=== PATIENT | female | born 1950 | race Caucasian/White ===

== ENCOUNTER 2017-02-28 20:00 | Inpatient (IN) | payer MEDICAID ==
[~2017-02-28] VITALS: Ht 152.4 cm; Wt 79.8 kg
[~2017-02-28 20:00] MED LIST: LEVO0.1331 PO
[2017-02-28 20:15] VITALS: BP 159/101
[2017-02-28] MEDS ORDERED: [UNRECOGNIZED DRUG - CODE] PO (20:20)
[2017-02-28] MEDS ORDERED: OMEP20TC10 PO (20:20)
--- NOTE | 2017-02-28 20:32 | NUR ---
Patient ambulated to bed 12.
--- NOTE | 2017-02-28 20:38 | NUR ---
PATIENT PRESENTS TO ED WITH FEELS LIKE SOMETHING IS STUCK IN HER THROAT AND HAVING TROUBLE SWALLOWING SINCE 1400. NO DROOLING NOTED, NO SOB. PT DENIES N/V/D; SKIN IS PINK/WARM/DRY; AAOX4 WITH EVEN AND STEADY GAIT; LUNGS CLEAR BL; HR EVEN AND REGULAR; PT DENIES ANY FEVER, CP, SOB, OR COUGH AT THIS TIME; PATIENT STATES PAIN OF 7/10 AT THIS TIME; VSS; PATIENT POSITIONED FOR COMFORT; HOB ELEVATED; BEDRAILS UP X2; BED DOWN. ER MD MADE AWARE OF PT STATUS.
--- NOTE | 2017-02-28 21:12 | NUR ---
PO CHALLENGE FAILED, EMESIS NOTED. NOTIFIED.
[2017-02-28] MEDS ORDERED: NACL 0.9% 1,000 ML IV ONE (22:30)
[2017-02-28 22:56] LABS: HEMATOCRIT 41.7 % (36-48); HEMOGLOBIN 13.7 g/dL (12.0-16.0); MEAN CORPUSCULAR HEMOGLOBIN 30 pg (27-31); MEAN CORPUSCULAR HGB CONC 33 g/dL (33-37); MEAN CORPUSCULAR VOLUME 92 fL (80-94); PLATELET COUNT (AUTO) 164 K/uL (140-450); RED BLOOD CELL COUNT(AUTO) 4.53 MIL/uL (4.20-5.40); RED CELL DISTRIBUTION WIDTH 14.9 % (11.6-13.7); WHITE BLOOD COUNT (AUTO) 7.6 K/uL (4.8-10.8)
[2017-02-28 23:02] LABS: LYMPHOCYTES % (MANUAL) 24 % (20-46); MONOCYTES % (MANUAL) 4 % (5-12)
[2017-02-28 23:03] LABS: PROTHROMBIN TIME 10.6 secs (10.8-13.4)
[2017-02-28 23:05] LABS: ALBUMIN 3.9 g/dL (3.4-5.0); ANION GAP 12.8 (8-16); CARBON DIOXIDE 29.6 mmol/L (21-32); CREATININE 0.7 mg/dL (0.6-1.3); POTASSIUM 3.4 mmol/L (3.5-5.1); TOTAL BILIRUBIN 0.8 mg/dL (0.0-1.0)
[2017-02-28] MEDS ORDERED: NACL 0.9% 500 ML IV ONE (23:15)
[2017-02-28] MEDS ORDERED: NACL 0.9% 1,000 ML IV SCH (23:44)
[2017-02-28] MEDS ORDERED: MORPHINE SULFATE 2 MG/ML SYR IVP PRN (23:45)
[2017-02-28] MEDS ORDERED: ONDANSETRON 4 MG/2 ML VIAL IM/IVP PRN (23:45)
[2017-02-28] MEDS ORDERED: ACETAMINOPHEN 325 MG TAB PO PRN (23:45)
[2017-02-28] MEDS ORDERED: HYDROcodone/APAP 7.5/325 MG 1 TAB PO PRN (23:45)
[2017-02-28] MEDS ORDERED: DOCUSATE SODIUM 100 MG GELCAP PO PRN (23:45)
[2017-03-01] MEDS ORDERED: KETOROLAC 30 MG/ML VIAL IVP ONE (00:10)
[2017-03-01 00:22] LABS: CHOL/HDL RATIO 3.4 (1-4.5); FREE T4 (FREE THYROXINE) 0.99 ng/dL (0.76-1.46); MAGNESIUM 2.1 mg/dL (1.8-2.4); PHOSPHORUS 3.9 mg/dL (2.5-4.9); THYROID STIMULATING HORMONE 1.52 uIU/mL (0.34-3.74)
--- NOTE | 2017-03-01 00:35 | NUR ---
RECEIVED REPORT FROM ENRIQUETA WHITE FROM ER. WILL WAIT FOR PATIENT'S ARRIVAL IN THE UNIT.
--- NOTE | 2017-03-01 00:35 | NUR ---
Patient will be admitted to care of DR SIDDIQI. Admited to TELE. Will go to room 121A. Belongings list completed. Report to CHRISTOPHER CANELA.
--- NOTE | 2017-03-01 00:44 | NUR ---
RECEIVED PATIENT FROM ER VIA GURNEY ACCOMPANIED BY RN AND EMT. INITIAL ASSESSMENT COMPLETED. PT IS AWAKE ALERT ORIENTED X4. GEORGIAN SPEAKING. SON AT BEDSIDE TO TRANSLATE AT THIS TIME. ON TELE MONITORING. IV ACCESS AT LEFT HAND 20G, IVF INFUSING WELL, PATENT, INTACT AT THIS TIME. CALL LIGHT WITHIN REACH, BED IN LOW POSITION. SAFETY MEASURE ENSURE. WILL CONTINUE TO MONITOR.
[2017-03-01 00:45] VITALS: BP 139/74
[2017-03-01] MEDS ORDERED: DEXT 5% /NACL 0.9% 1,000 ML IV SCH (01:05)
[2017-03-01] MEDS ORDERED: KCL 20 MEQ/WATER INJ PREMIX 100 ML IV SCH (01:15)
--- NOTE | 2017-03-01 01:35 | NUR ---
DR. CASTRO AT BEDSIDE EVALUATING PT.
--- NOTE | 2017-03-01 02:08 | NUR ---
NOTED TO HAVE BLACK SPOT ON THE TONGUE. DR. CASTRO AWARE AND SAW THE PATIENT. Addendum: 03/01/17 at 0210 by Tangela Hess RN NO SIGNS OF BLEEDING, NO DIFFICULTY OF BREATHING. WILL CONTINUE TO MONITOR.
[2017-03-01 04:00] VITALS: BP 147/70
--- NOTE | 2017-03-01 04:51 | NUR ---
PT ASLEEP AT THIS TIME. NO SIGNS OF DISTRESS NOTED. WILL CONTINUE TO MONITOR.
--- NOTE | 2017-03-01 07:15 | NUR ---
REPORT GIVEN TO CHRISTOPHER HERNANDEZ FOR CONTINUITY OF CARE, STABLE CONDITION AT THIS TIME.
--- NOTE | 2017-03-01 07:20 | NUR ---
RECEIVED REPORT FROM PEDODONTIST NURSE, PT IS RESTING IN BED TALKING ON HER CELL PHONE, PT IS A/OX4, AMBULATES WITH ASSIST, IV IS ON THE LT HAND, PATENT, INTACT, FLUSHING WELL, NO S/S OF RESPIRATORY DISTRESS OR DISCOMFORT NOTED, DISCUSSED PLAN OF CARE WITH PT, PT VERBALIZED UNDERSTANDING, SAFETY/FALL/ASPIRATION PRECAUTIONS ARE IN PLACE, CALL LIGHT IS WITHIN REACH, WILL CONTINUE TO MONITOR.
[2017-03-01 07:30] LABS: BASOPHILS # (AUTO) 0.1 K/uL (0.00-0.22); BASOPHILS % (AUTO) 2.1 % (0.0-2.0); EOSINOPHILS # (AUTO) 0.1 K/uL (0-0.4); EOSINOPHILS % (AUTO) 1.5 % (0.0-4.0); HEMATOCRIT 37.9 % (36-48); HEMOGLOBIN 12.9 g/dL (12.0-16.0); LYMPHOCYTES # (AUTO) 1.4 K/uL (2.5-16.5); LYMPHOCYTES % (AUTO) 24.4 % (20.5-51.1); MEAN CORPUSCULAR HEMOGLOBIN 31 pg (27-31); MEAN CORPUSCULAR HGB CONC 34 g/dL (33-37); MEAN CORPUSCULAR VOLUME 91 fL (80-94); MONOCYTES # (AUTO) 0.5 K/uL (0.8-1.0); MONOCYTES % (AUTO) 9.5 % (1.7-9.3); NEUTROPHILS # (AUTO) 3.5 K/uL (1.8-7.7); NEUTROPHILS % (AUTO) 62.5 % (42.2-75.2); PLATELET COUNT (AUTO) 166 K/uL (140-450); RED BLOOD CELL COUNT(AUTO) 4.17 MIL/uL (4.20-5.40); RED CELL DISTRIBUTION WIDTH 14.5 % (11.6-13.7); WHITE BLOOD COUNT (AUTO) 5.6 K/uL (4.8-10.8)
[2017-03-01] MEDS ORDERED: INFLUENZA VIRUS VACCINE QUAD 0.5 ML SYR IMVAC PRN (07:35)
[2017-03-01] MEDS ORDERED: PNEUMOCOCCAL VACCINE 23 MCG/0.5 ML VIAL IMVAC PRN (07:35)
[2017-03-01 07:46] LABS: ANION GAP 10.9 (8-16); CREATININE 0.6 mg/dL (0.6-1.3); POTASSIUM 3.9 mmol/L (3.5-5.1)
[2017-03-01 08:00] VITALS: BP 127/77
[2017-03-01] MEDS: NACL 0.9% 1,000 ML IV SCH ×2 (08:45→20:13)
[2017-03-01] MEDS ORDERED: GLUCOSAMINE SULFATE DIPOT CHLR 500 MG PO SCH (09:00)
[2017-03-01] MEDS ORDERED: PNEUMOCOCCAL VACCINE 23 MCG/0.5 ML VIAL IMVAC SCH (09:00)
[2017-03-01] MEDS ORDERED: INFLUENZA VIRUS VACCINE QUAD 0.5 ML SYR IMVAC SCH (09:00)
[2017-03-01] MEDS ORDERED: PANTOPRAZOLE 40 MG INJ VIAL IVP SCH (09:00)
--- NOTE | 2017-03-01 10:00 | NUR ---
DUE MEDICATIONS GIVEN. PT TOLERATED, CALL LIGHT WITHIN REACH.
[2017-03-01] MEDS: LEVOTHYROXINE 200 MCG VIAL IV SCH (10:02)
[2017-03-01] MEDS: PANTOPRAZOLE 40 MG INJ VIAL IVP SCH (10:02)
--- NOTE | 2017-03-01 10:31 | NUR ---
MATERIALS COORDINATOR note MATERIALS COORDINATOR received order for bedside swallow evaluation; however, per review of chart and d/w RN (Magi) and medical safety director (Rosmery Marti), hold bedside swallow evaluation until after GI physician has assessed pt. MATERIALS COORDINATOR will reattempt tomorrow (03/02/2017) as pt available/able to participate safely, as appropriate. Addendum: 03/01/17 at [address] for bedside swallow evaluation attempt and d/w RN and medical safety director.
--- NOTE | 2017-03-01 10:32 | NUR ---
PATIENT HAS BEEN SCREENED AND CATEGORIZED HIGH NUTRITION RISK. PATIENT WILL BE SEEN WITHIN 1-2 DAYS OF ADMISSION. 03/01/17-03/02/[address]
[2017-03-01 12:00] VITALS: BP 133/71
--- NOTE | 2017-03-01 13:15 | NUR ---
PT OFF UNIT AND TAKEN TO RADIOLOGY TO HAVE STUDY DONE.
--- NOTE | 2017-03-01 13:25 | NUR ---
PT RETURNED FROM RADIOLOGY, PT STABLE, RESTING IN BED.
--- NOTE | 2017-03-01 15:03 | NUR ---
03/01/17 RD INITIAL ASSESSMENT COMPLETED PLEASE REFER TO NUTRITION ASSESSMENT UNDER CARE ACTIVITY FOR ESTIMATED NUTRITIONAL NEEDS. 1. CONTINUE NPO DIET 2. WHEN MEDICALLY FEASIBLE, INITIATE CLEAR LIQUID DIET AND ADVANCE TO REGULAR DIET WITH TEXTURE PER WOOL SORTER RECOMMENDATIONS 3. RD TO FOLLOW UP WITHIN 2-3 DAYS; HIGH RISK JAQUI VALENCIA, DOMITILA
--- NOTE | 2017-03-01 15:30 | NUR ---
PT RESTING IN BED, NO S/S OF RESPIRATORY DISTRESS OR DISCOMFORT NOTED, CALL LIGHT WITHIN REACH.
[2017-03-01 16:00] VITALS: BP 129/70
--- NOTE | 2017-03-01 17:40 | NUR ---
ASSISTED PT TO THE BATHROOM AND BACK INTO BED, PATIENT'S FAMILY MEMBERS ARE AT BEDSIDE.
--- NOTE | 2017-03-01 19:20 | NUR ---
ENDORSED PT TO REFERENCE INVESTIGATOR NURSE FOR CONTINUITY OF CARE, PT STABLE AT THIS TIME.
--- NOTE | 2017-03-01 19:20 | NUR ---
RECEIVED FROM AM RN IN BED AWAKE AND ALERT. SERBIAN SPEAKING. SPOUSE AT BEDSIDE AND ABLE TO VERBALIZE NEEDS WELL. NO SOB. DENIES ANY DOLOR AT THIS TIME. TELEMETRY MONITORING. NPO AT THIS TIME ORDERED. ENCOURAGED TO USE CALL LIGHT FOR ANY HELP SHE MAY NEED. AFEBRILE.
[2017-03-01 20:36] VITALS: BP 126/73
--- NOTE | 2017-03-01 22:30 | NUR ---
PT. WENT TO SLEEP AT THIS TIME. CALL LIGHT WITH IN REACH. TELEMETRY MONITORING.
--- NOTE | 2017-03-01 23:48 | NUR ---
SLEEPING WELL. CALL LIGHT WITH IN REACH . TELEMETRY MONITORING. IVF SITE INTACT AND NO INFILTRATION NOTED.
[2017-03-02] VITALS: BP 116/69
--- NOTE | 2017-03-02 02:42 | NUR ---
PT. PULLED UP AND PROPPED HEAD WITH TWO PILLOWS RT SNORING VERY LOUDLY. PT STATED " I REALLY SLEEP THIS WAY" STATED SHE REALLY SNORES SO BAD. TELEMETRY MONITORING.
[2017-03-02 04:19] VITALS: BP 126/75
--- NOTE | 2017-03-02 06:44 | NUR ---
AWAKE AT THIS TIME AND WENT RESTROOM INSIDE ROOM. CAME BACK WITH IFV OUT /ACCIDENTALLY DISCONTINUED BY PT. TIP INTACT. NEW IVF LINE INSERTED BY NURSE NAVID X 1 TO RIGHT HAND#22. TOLERATED WELL. COVERED WITH TRANSPARENT DRESSING.
--- NOTE | 2017-03-02 07:10 | NUR ---
RECEIVED REPORT FROM MANAGER COMMISSION NURSE, PT IS RESTING IN BED, PT IS A/OX4, AMBULATORY, IV IS ON THE RIGHT HAND, PATENT, INTACT, FLUSHING WELL, SKIN IS INTACT, NO S/S OF RESPIRATORY DISTRESS OR DISCOMFORT NOTED, DISCUSSED PLAN OF CARE WITH PT, PT VERBALIZED UNDERSTANDING, SAFETY/FALL/ASPIRATION PRECAUTIONS ARE IN PLACE, CALL LIGHT IS WITHIN REACH, WILL CONTINUE TO MONITOR.
[2017-03-02 07:23] LABS: BASOPHILS # (AUTO) 0.2 K/uL (0.00-0.22); BASOPHILS % (AUTO) 3.6 % (0.0-2.0); EOSINOPHILS # (AUTO) 0.1 K/uL (0-0.4); EOSINOPHILS % (AUTO) 1.5 % (0.0-4.0); HEMOGLOBIN 13.1 g/dL (12.0-16.0); LYMPHOCYTES # (AUTO) 1.1 K/uL (2.5-16.5); LYMPHOCYTES % (AUTO) 24.8 % (20.5-51.1); MEAN CORPUSCULAR HEMOGLOBIN 31 pg (27-31); MEAN CORPUSCULAR HGB CONC 34 g/dL (33-37); MEAN CORPUSCULAR VOLUME 92 fL (80-94); MONOCYTES # (AUTO) 0.4 K/uL (0.8-1.0); MONOCYTES % (AUTO) 9.7 % (1.7-9.3); NEUTROPHILS # (AUTO) 2.8 K/uL (1.8-7.7); NEUTROPHILS % (AUTO) 60.4 % (42.2-75.2); PLATELET COUNT (AUTO) 160 K/uL (140-450); RED BLOOD CELL COUNT(AUTO) 4.24 MIL/uL (4.20-5.40); RED CELL DISTRIBUTION WIDTH 14.7 % (11.6-13.7); WHITE BLOOD COUNT (AUTO) 4.6 K/uL (4.8-10.8)
[2017-03-02 07:38] LABS: ANION GAP 11.1 (8-16); CARBON DIOXIDE 28.5 mmol/L (21-32); CREATININE 0.6 mg/dL (0.6-1.3); POTASSIUM 3.6 mmol/L (3.5-5.1)
[2017-03-02 08:00] VITALS: BP 137/84
[2017-03-02] MEDS: PANTOPRAZOLE 40 MG INJ VIAL IVP SCH (08:47)
[2017-03-02] MEDS: LEVOTHYROXINE 200 MCG VIAL IV SCH (08:48)
[2017-03-02 08:54] LABS: T4 (THYROXINE) 7.5 ug/dL (4.5-12.0)
[2017-03-02] MEDS: NACL 0.9% 1,000 ML IV SCH (11:25)
--- NOTE | 2017-03-02 13:17 | NUR ---
PATIENT OFF UNIT TO HAVE EGD DONE AT THIS TIME. PT STABLE UPON LEAVING UNIT
[2017-03-02] MEDS ORDERED: MIDAZOLAM 2 MG/2 ML VIAL ONE (13:32)
[2017-03-02] MEDS ORDERED: fentaNYL 0.05 MG/ML VIAL ONE (13:32)
[2017-03-02] MEDS ORDERED: diphenhydrAMINE 50 MG/ML VIAL ONE (13:33)
--- NOTE | 2017-03-02 14:27 | NUR ---
PT RETURNED TO UNIT FROM EGD PROCEDURE, PT AWAKE AND STABLE AT THIS TIME. PT VITALS BP 130/76, HR:75, O2:95%, TEMP: 97.5.
[2017-03-02] MEDS ORDERED: fentaNYL 0.05 MG/ML VIAL IVP ONE (14:30)
[2017-03-02] MEDS ORDERED: MIDAZOLAM 2 MG/2 ML VIAL IVP ONE (14:30)
[2017-03-02 16:00] VITALS: BP 122/75
--- NOTE | 2017-03-02 17:12 | NUR ---
* ST NOTE * Pt seen at bedside w/nsg present. Bedside dysphagia and oral mechanism exams completed. See evaluation report for further details. Pt tolerating 2/2 alternating PO trials of puree apple sauce 3-5 CCs at a time via a spoon w/o s/s of aspiration. Pt also tolerating 6/6 alternating PO trials of thin liquid apple juice via a straw w/out s/s of aspiration exhibiting clear voicing WFL w/out wet or gargly vocal quality after PO intake of liquids. Pt then tolerating 4/4 alternating PO trials of regular solid crackers w/o s/s of aspiration. Pt and caregiver/nsg education completed regarding safe swallow compensatory strategies pt and caregivers/nsg could utilize to aid pt w/swallow function 2/2 to esophageal stricture and hx of dysphagia, w/pt and caregivers/nsg verbalizing understanding and agreement w/clinician's recommendations. It is thus recommended pt's PO diet consistency be modified to mechanical soft textures w/thin liquids for all meals, with pt and caregivers/nsg verbalizing understanding and agreement. No further ST follow up recommended at this time. Pt and caregiver/nsg education completed regarding results of evaluation, benefits of abiding by aspiration precautions and recommended PO diet consistency, and prognosis for improvement, with pt and caregivers/nsg verbalizing understanding and agreement w/clinician's recommendations. Recommend: - PO diet consistency of Mechanical soft-Chopped w/Thin Liquids for all meals - Sit pt up at 90 degree angle during PO intake 2/2 to pt's hx of dysphagia and esophageal stricture - Cueing/Reminders during setup of food tray of aspiration precautions prior to PO intake - Distal supervision during PO intake by caregivers/staff to assure aspiration precautions are in place No further ST follow up recommended at this time. G8996 CJ G8997 CI G8998 CI NOMS Level 2 Time In/Out 16:00 - 16:30
--- NOTE | 2017-03-02 19:15 | NUR ---
ENDORSED PT TO ECOMMERCE MERCHANDISING MANAGER NURSE FOR CONTINUITY OF CARE, PT STABLE AT THIS TIME.
--- NOTE | 2017-03-02 19:30 | NUR ---
RECEIVED PT IN STABLE CONDITION FROM AM NURSE. AWAKE,ALERT AND ORIENTED X4. HUNGARIAN SPEAKING. MED SURG PT. WITH NO C/O OF ANY DISCOMFORT NOR PAIN NOTED. HAS IVF INFUSING WELL ON THE RT HAND G#22. AMBULATORY TO BATHROOM WITH ASSISTANCE. PLAN OF CARE DISCUSSED AND VERBALIZED UNDERSTANDING. CALL LIGHT PLACED WITHIN EASY REACH. WILL CONTINUE TO MONITOR.
--- NOTE | 2017-03-02 22:00 | NUR ---
ASSISTED UP TO BATHROOM. VOIDED. BACK TO BED WITH NO PROBLEM NOTED. NO C/O ANY PAIN.
[2017-03-02 23:46] VITALS: BP 116/66
--- NOTE | 2017-03-03 00:10 | NUR ---
SLEEPING WELL AT THIS TIME. NO S/S OF ANY DISCOMFORT/PAIN NOTED. WILL CONTINUE TO MONITOR.
[2017-03-03] MEDS: NACL 0.9% 1,000 ML IV SCH ×2 (00:12→11:57)
--- NOTE | 2017-03-03 03:50 | NUR ---
PT AWAKE, ASSISTED TO BATHROOM. URINE SPECIMEN COLLECTED AND SEND TO LAB.
[2017-03-03 04:15] LABS: APPEARANCE,URINE CLEAR (CLEAR); BILIRUBIN,URINE NEGATIVE (NEGATIVE); BLOOD, URINE NEGATIVE (NEGATIVE); COLOR,URINE YELLOW (YELLOW); LEUKOCYTE ESTERASE ,URINE NEGATIVE (NEGATIVE); NITRITE, URINE NEGATIVE (NEGATIVE); UGLUCOSE NEGATIVE (NEGATIVE)
[2017-03-03 04:24] LABS: RBC,URINE 0-5 (RARE) /HPF (0-5); WBC,URINE 0-5 (RARE) /HPF (0-5)
--- NOTE | 2017-03-03 05:30 | NUR ---
SLEEPING AT THIS TIME. NO S/S OF ANY DISTRESS NOR DISCOMFORT NOTED.
[2017-03-03 06:26] LABS: BASOPHILS # (AUTO) 0.2 K/uL (0.00-0.22); BASOPHILS % (AUTO) 3.4 % (0.0-2.0); EOSINOPHILS # (AUTO) 0.1 K/uL (0-0.4); EOSINOPHILS % (AUTO) 2.3 % (0.0-4.0); HEMOGLOBIN 12.7 g/dL (12.0-16.0); LYMPHOCYTES # (AUTO) 1.3 K/uL (2.5-16.5); LYMPHOCYTES % (AUTO) 26.7 % (20.5-51.1); MEAN CORPUSCULAR HEMOGLOBIN 31 pg (27-31); MEAN CORPUSCULAR HGB CONC 33 g/dL (33-37); MEAN CORPUSCULAR VOLUME 92 fL (80-94); MONOCYTES # (AUTO) 0.5 K/uL (0.8-1.0); MONOCYTES % (AUTO) 10.3 % (1.7-9.3); NEUTROPHILS # (AUTO) 2.9 K/uL (1.8-7.7); NEUTROPHILS % (AUTO) 57.3 % (42.2-75.2); PLATELET COUNT (AUTO) 149 K/uL (140-450); RED BLOOD CELL COUNT(AUTO) 4.11 MIL/uL (4.20-5.40); RED CELL DISTRIBUTION WIDTH 14.8 % (11.6-13.7)
[2017-03-03 06:41] LABS: ANION GAP 11.5 (8-16); CARBON DIOXIDE 26.9 mmol/L (21-32); CREATININE 0.6 mg/dL (0.6-1.3); POTASSIUM 3.4 mmol/L (3.5-5.1)
[2017-03-03 06:49] LABS: MAGNESIUM 1.9 mg/dL (1.8-2.4); PHOSPHORUS 3.5 mg/dL (2.5-4.9)
--- NOTE | 2017-03-03 07:24 | NUR ---
ENDORSED PT IN STABLE CONDITION TO AM NURSE.
--- NOTE | 2017-03-03 07:25 | NUR ---
RECEIVED REPORT FROM THE WILDLAND FIREFIGHTER NURSE AT BEDSIDE FOR CONTINUITY OF CARE. PT IS AWAKE AND ORIENTED, UKRAINIAN SPEAKING. INTRODUCED MYSELF AND UPDATED THE BOARD. PT'S V/S WITHIN NORMAL LIMITS. IV ON R HAND 22G NS AT 75ML. PT DENIES PAIN. PT IS EATING BREAKFAST. NO SIGNS OF DISTRESS OR DYSPHAGIA. PER DR RENNER, PT WILL BE D/C TODAY. WILL AWAIT DISCHARGE ORDERS. WILL CONTINUE TO MONITOR PT.
[2017-03-03 08:00] VITALS: BP 140/76
[2017-03-03] MEDS: PANTOPRAZOLE 40 MG INJ VIAL IVP SCH (08:44)
--- NOTE | 2017-03-03 08:53 | NUR ---
ADMINISTERED MORNING MED ALONG WITH HER FLU AND PNA VACCINATIONS. PT TOLERATED WELL. WILL CONTINUE TO MONITOR PT.
--- NOTE | 2017-03-03 10:57 | NUR ---
PT AWAKE AND VISITING WITH FRIENDS. NO SIGNS OF DISTRESS. WILL CONTINUE TO MONITOR PT.
[2017-03-03] MEDS ORDERED: POTASSIUM CHLORIDE 10 MEQ TABER PO SCH (12:00)
--- NOTE | 2017-03-03 13:50 | NUR ---
WENT OVER D/C INSTRUCTIONS WITH THE USE OF A INSIDE SALES SPECIALIST PHONE. ANSWERED ALL QUESTIONS. PT VERBALIZED UNDERSTANDING. SIGNED ALL APPROPRIATE PAPER WORK. REMOVED IV,CANNULA INTACT. NO BLEEDING NOTED. REMOVED ALL ID BANDS. PT WILL GET CHANGED INTO PERSONAL CLOTHES AND GATHER HER PERSONAL BELONGINGS. WILL CALL US WHEN SHE IS READY TO LEAVE.
--- NOTE | 2017-03-03 14:05 | NUR ---
PT WHEELED OUT IN A WHEELCHAIR BY MATHEMATICS FACULTY MEMBER AND DAUGHTER AT HER SIDE. PT HAS ALL HER PERSONAL BELONGINGS WITH HER. PT IS IN STABLE CONDITION.
[2017-03-04] MEDS ORDERED: LEVOTHYROXINE 0.112 MG, LEVOTHYROXINE 0.025 MG PO SCH ×2 (06:30)
[2017-03-04] MEDS ORDERED: LEVOTHYROXINE 0.112 MG TAB PO SCH (06:30)
== END 2017-03-03 14:05 | disposition home or self-care (01) | DRG 243 ==
LOC: MED 20:00 → MTU 23:50
PROVIDERS: ADMIT Family Medicine; ATTEND Family Medicine
PROC: 0DB68ZX Excision of Stomach, Via Natural or Artificial Opening Endoscopic, Diagnostic (ICD-10-PCS; principal; 2017-03-02 13:30)
PROC: 0D738ZZ Dilation of Lower Esophagus, Via Natural or Artificial Opening Endoscopic (ICD-10-PCS; 2017-03-02 13:30)
DX: K22.2 Esophageal obstruction (principal); N17.0 Acute kidney failure with tubular necrosis; E87.0 Hyperosmolality and hypernatremia; K44.9 Diaphragmatic hernia without obstruction or gangrene; E83.51 Hypocalcemia; E78.5 Hyperlipidemia, unspecified; I10 Essential (primary) hypertension; E11.9 Type 2 diabetes mellitus without complications; K21.9 Gastro-esophageal reflux disease without esophagitis; E89.0 Postprocedural hypothyroidism; M19.90 Unspecified osteoarthritis, unspecified site; E87.6 Hypokalemia; E66.9 Obesity, unspecified; E87.8 Other disorders of electrolyte and fluid balance, not elsewhere classified; K29.70 Gastritis, unspecified, without bleeding; J35.8 Other chronic diseases of tonsils and adenoids; Z68.34 Body mass index [BMI] 34.0-34.9, adult; Z86.73 Personal history of transient ischemic attack (TIA), and cerebral infarction without residual deficits; Z85.850 Personal history of malignant neoplasm of thyroid
CPT/HCPCS: 36415; 70490; 74220; 80048; 80053; 81001; 82140; 82150; 83036; 83690; 83735; 83880; 84100; 84436; 84439; 84443; 84479; 85025; 85610; 85730; 86677; 87081; 90658; 90732; 92610; 96361; 96374; 99285; C1727; C9113; J1200; J1885; J2250; J3010; J3480; J3490; J7030; J7042

== ENCOUNTER 2019-03-22 09:49 | Emergency (ER) | payer MEDICAID ==
[~2019-03-22] VITALS: Ht 154.9 cm; Wt 73.5 kg
[~2019-03-22 09:49] MED LIST changes: +OMEP20TC10 PO; +[UNRECOGNIZED DRUG - CODE] PO
[2019-03-22 10:13] VITALS: BP 149/80
--- NOTE | 2019-03-22 10:58 | NUR ---
Patient transferred to bed 2 via wheelchair. RN evaluating patient at bedside.
--- NOTE | 2019-03-22 11:53 | NUR ---
C/O DYSPHAGIA X2 DAYS. PER PT DAUGHTER, PT HAS BEEN UNABLE TO SWALLOW FOOD/WATER FOR 2 DAYS. PT HAX HX OF presbyesophagus. NO LABORED BREATHING, DROOLING, SOB NOTED. PT DENIES PAIN. BED IN LOW POSITION, SIDE RAIL UP X1
--- NOTE | 2019-03-22 12:00 | NUR ---
ERMD AT BEDSIDE EVALUATING PT
[2019-03-22] MEDS ORDERED: NACL 0.9% 1,000 ML IV SCH (12:10)
[2019-03-22] MEDS ORDERED: ONDANSETRON 4 MG/2 ML VIAL IVP ONE (12:10)
[2019-03-22 12:44] LABS: BASOPHILS % (AUTO) 0.4 % (0.0-2.0); EOSINOPHILS # (AUTO) 0.1 K/uL (0-0.4); EOSINOPHILS % (AUTO) 0.8 % (0.0-4.0); HEMATOCRIT 43.6 % (36-48); HEMOGLOBIN 14.8 g/dL (12.0-16.0); LYMPHOCYTES # (AUTO) 1.5 K/uL (2.5-16.5); LYMPHOCYTES % (AUTO) 18.9 % (20.5-51.1); MEAN CORPUSCULAR HEMOGLOBIN 33 pg (27-31); MEAN CORPUSCULAR HGB CONC 34 g/dL (33-37); MEAN CORPUSCULAR VOLUME 96.7 fL (80-94); MONOCYTES # (AUTO) 0.5 K/uL (0.8-1.0); MONOCYTES % (AUTO) 6.9 % (1.7-9.3); NEUTROPHILS # (AUTO) 5.7 K/uL (1.8-7.7); PLATELET COUNT (AUTO) 177 K/uL (140-450); RED BLOOD CELL COUNT(AUTO) 4.51 MIL/uL (4.20-5.40); RED CELL DISTRIBUTION WIDTH 14.3 % (11.6-13.7); WHITE BLOOD COUNT (AUTO) 7.8 K/uL (4.8-10.8)
[2019-03-22 12:58] LABS: APPEARANCE,URINE CLEAR (CLEAR); COLOR,URINE YELLOW (YELLOW)
[2019-03-22 12:59] LABS: BILIRUBIN,URINE NEGATIVE (NEGATIVE); BLOOD, URINE NEGATIVE (NEGATIVE); LEUKOCYTE ESTERASE ,URINE 1+ (NEGATIVE); NITRITE, URINE NEGATIVE (NEGATIVE); UGLUCOSE NEGATIVE (NEGATIVE)
[2019-03-22 13:36] LABS: RBC,URINE 0-5 /HPF (0-5)
[2019-03-22 13:37] LABS: WBC,URINE 0-5 /HPF (0-5)
[2019-03-22 13:47] LABS: POTASSIUM 4.3 mmol/L (3.5-5.1)
[2019-03-22 13:48] LABS: CREATININE 0.6 mg/dL (0.6-1.3)
[2019-03-22 13:49] LABS: ALBUMIN 3.8 g/dL (3.4-5.0)
--- NOTE | 2019-03-22 14:00 | NUR ---
PT RESTING IN BED, NO NEW NEEDS AT THIS TIME.
[2019-03-22] MEDS ORDERED: ALUMINUM HYD/MAG/SIMETHICONE 30 ML, DICYCLOMINE HCL LIQUID 20 MG, LIDOCAINE VISCOUS 2% ... PO ONE ×3 (15:05)
[2019-03-22 16:02] VITALS: BP 145/67
--- NOTE | 2019-03-22 16:02 | NUR ---
Patient discharged with v/s stable. Written and verbal after care instructions given and explained. Patient verbalized understanding. Ambulatory with steady gait. All questions addressed prior to discharge. Advised to follow up with PMD.
== END 2019-03-22 16:02 | disposition home or self-care (01) ==
LOC: MED 09:49
DX: J02.9 Acute pharyngitis, unspecified (principal); R13.10 Dysphagia, unspecified; K21.9 Gastro-esophageal reflux disease without esophagitis; I10 Essential (primary) hypertension; Z79.899 Other long term (current) drug therapy
CPT/HCPCS: 36415; 70490; 74176; 80053; 81001; 82150; 83690; 85025; 87086; 99284; J7030; J2405

== ENCOUNTER 2020-11-08 14:07 | Emergency (ER) | payer MEDICAID ==
[~2020-11-08] VITALS: Ht 157.5 cm; Wt 84.4 kg
[2020-11-08 14:29] VITALS: BP 147/119
--- NOTE | 2020-11-08 14:36 | NUR ---
Patient ambulated to bed 01 with cane.
--- NOTE | 2020-11-08 14:44 | NUR ---
70 Y/O F BIB SELF FROM HOME, C/O R LEG PAIN FOR 1 WEEK. PT STATES SHE TOOK IBUPROFEN WITH NO RELIEF. DENIES N/V/D; SKIN IS PINK/WARM/DRY; AAOX4 AMBULTES WITH ASSISTIVE DEVICE (CANE); LUNGS CLEAR BL; HR EVEN AND REGULAR; PT DENIES ANY FEVER, CP, SOB, OR COUGH AT THIS TIME; PATIENT STATES PAIN OF 6/10 AT THIS TIME; VSS; PATIENT POSITIONED FOR COMFORT; HOB ELEVATED; BEDRAILS UP X2; BED DOWN. ER MD MADE AWARE OF PT STATUS. PT IS ABLE TO FLEX AND EXTEND R LOWER EXTREMITY, CAP REFILL <3. PMH: GERD, HYPOTHYROIDISM, HLD MED: Naproxen, Prilosec, levothyroxine, atorvastatin, Zofran NKA
[2020-11-08] MEDS ORDERED: KETOROLAC 30 MG/ML VIAL IM ONE (15:25)
--- NOTE | 2020-11-08 15:35 | NUR ---
US at bedside.
--- NOTE | 2020-11-08 15:57 | NUR ---
Patient resting comfortably with both eyes open in semi-fowlers position. Reports positive relief after Toradol IM; rates pain 1/10 at this time. All pt needs met.
[2020-11-08] MEDS ORDERED: ACET-8386 PO (16:27)
[2020-11-08 16:42] VITALS: BP 147/105
--- NOTE | 2020-11-08 16:42 | NUR ---
Patient discharged with v/s stable. Written and verbal after care instructions given and explained. Patient alert, oriented and verbalized understanding of instructions. Ambulatory with steady gait via cane. All questions addressed prior to discharge. ID band removed. Patient advised to follow up with PMD. Rx of Hydrocodone/Acetaminophen given. Patient educated on indication of medication including possible reaction and side effects. Opportunity to ask questions provided and answered.
== END 2020-11-08 16:42 | disposition home or self-care (01) ==
LOC: MED 14:07
DX: M79.604 Pain in right leg (principal); M19.90 Unspecified osteoarthritis, unspecified site; K21.9 Gastro-esophageal reflux disease without esophagitis; I10 Essential (primary) hypertension; Z79.899 Other long term (current) drug therapy; Z98.890 Other specified postprocedural states
CPT/HCPCS: 93971; 96372; 99284; J1885

== ENCOUNTER 2022-04-14 18:54 | Inpatient (IN) | payer MEDICAID ==
[~2022-04-14] VITALS: Ht 157.5 cm; Wt 83.0 kg
[~2022-04-14 18:54] MED LIST changes: +ACET-8905 PO; +ALBU0.63 IH; +ATOR20TA PO; +LEVO0.114 PO; +OMEP-303 PO; +OMEP20EC11 PO; -OMEP20TC10 PO
[2022-04-14 19:25] VITALS: BP 170/75
--- NOTE | 2022-04-14 19:28 | NUR ---
TO LOBBY A/W BED AMBULATORY
--- NOTE | 2022-04-14 19:49 | NUR ---
PT TO BED #5
--- NOTE | 2022-04-14 20:00 | NUR ---
RECEIVED IN BED 5 WITH C/O ABNORMAL LABS. WAS SENT HERE BY PMD FOR LOW HGB. PT C/O FATIGUE
--- NOTE | 2022-04-14 20:10 | NUR ---
SL ESTABLISHED, LABS DRAWN
[2022-04-14 20:23] LABS: BASOPHILS # (AUTO) 0.1 K/uL (0.00-0.22); BASOPHILS % (AUTO) 1.2 % (0.0-2.0); EOSINOPHILS % (AUTO) 0.3 % (0.0-4.0); HEMATOCRIT 21.8 % (36-48); LYMPHOCYTES # (AUTO) 1.8 K/uL (2.5-16.5); LYMPHOCYTES % (AUTO) 30.7 % (20.5-51.1); MEAN CORPUSCULAR HEMOGLOBIN 22 pg (27-31); MEAN CORPUSCULAR HGB CONC 31 g/dL (33-37); MEAN CORPUSCULAR VOLUME 72.1 fL (80-94); MONOCYTES # (AUTO) 0.7 K/uL (0.8-1.0); MONOCYTES % (AUTO) 12.4 % (1.7-9.3); NEUTROPHILS # (AUTO) 3.3 K/uL (1.8-7.7); NEUTROPHILS % (AUTO) 55.4 % (42.2-75.2); PLATELET COUNT (AUTO) 347 K/uL (140-450); RED BLOOD CELL COUNT(AUTO) 3.03 MIL/uL (4.20-5.40); RED CELL DISTRIBUTION WIDTH 22.5 % (11.6-13.7)
[2022-04-14 20:26] LABS: HEMOGLOBIN 6.7 g/dL (12.0-16.0)
--- NOTE | 2022-04-14 20:39 | NUR ---
GLADYS SWAB OBTAINED AND SENT TO LAB
[2022-04-14 20:47] LABS: PROTHROMBIN TIME 10.4 secs (10.8-13.4)
[2022-04-14] MEDS ORDERED: NACL 0.9% 1,000 ML IV ONE (21:10)
--- NOTE | 2022-04-14 21:40 | NUR ---
UNIT #1 PRBC'S BEGUN
[2022-04-14 21:59] LABS: ALBUMIN 3.1 g/dL (3.4-5.0); ANION GAP 12.6 (8-16); ASPARTATE AMINOTRANSFERASE 15 U/L (15-37); CARBON DIOXIDE 30.4 mmol/L (21-32); CHLORIDE 105 mmol/L (98-107); CREATININE 0.7 mg/dL (0.6-1.3); GLUCOSE 128 mg/dL (74-106); SODIUM SERUM 144 mmol/L (136-145); TOTAL BILIRUBIN 0.4 mg/dL (0.0-1.0); UREA NITROGEN, BLOOD 20 mg/dL (7-18)
--- NOTE | 2022-04-14 22:13 | NUR ---
MED RECONCILE AND PERSONAL BELONGINGS LIST COMPLETED
[2022-04-14] MEDS ORDERED: guaiFENesin DM 200/20 MG-10 ML 10 ML UDC PO PRN (22:35)
[2022-04-14] MEDS ORDERED: ACETAMINOPHEN 325 MG TAB PO PRN (22:35)
[2022-04-14] MEDS ORDERED: HYDROcodone/APAP 7.5/325 MG 1 TAB PO PRN (22:35)
[2022-04-14] MEDS ORDERED: ONDANSETRON 4 MG/2 ML VIAL IM/IVP PRN (22:35)
[2022-04-14] MEDS ORDERED: ZOLPIDEM 5 MG TAB PO PRN (22:35)
[2022-04-14] MEDS ORDERED: POTASSIUM CHLORIDE 10 MEQ TABER PO PRN (22:35)
[2022-04-14] MEDS ORDERED: DOCUSATE SODIUM 100 MG GELCAP PO PRN (22:35)
[2022-04-14] MEDS ORDERED: lisinopriL 20 MG TAB PO SCH (22:40)
--- NOTE | 2022-04-14 23:00 | NUR ---
resting comfortably. prbc inusion continues without incident
[2022-04-14 23:12] LABS: AMYLASE 52 U/L (25-115); CHOL/HDL RATIO 1.8 (1-4.5); FREE T4 (FREE THYROXINE) 1.02 ng/dL (0.76-1.46); HDL CHOLESTEROL 65 mg/dL (40-60); LDL (CALC) 40 mg/dL (60-100); LIPASE 127 U/L (73-393); MAGNESIUM 2.2 mg/dL (1.8-2.4); PHOSPHORUS 4.8 mg/dL (2.5-4.9); THYROID STIMULATING HORMONE 0.24 uIU/mL (0.34-3.74); TRIGLYCERIDES 65 mg/dL (30-150)
--- NOTE | 2022-04-15 01:05 | NUR ---
UNIT #2 PRBC'S BEGUN
--- NOTE | 2022-04-15 02:00 | NUR ---
Patient appears to be resting comfortably in bed. Vital Signs within normal limits. Respirations even and unlabored.
[2022-04-15] MEDS: LEVOTHYROXINE 0.112 MG TAB PO SCH (07:00)
--- NOTE | 2022-04-15 08:45 | NUR ---
Admitted from , with chief complaint of weakness , 71 y/o ,Female, Appropriate, oriented to call light, bed, phone,television, bathroom, smoking policy, visiting hours, procedures, ID bracelet on. Belongings list checked. patient received from er via gurney by one of er stuff , alena/ac4 , vss , monitor applied , skin intact , no edema , received two unt blood in er , ambulatory x10 , continent x2 , saftey proaction applied , bed in lower position , call light within reach , side rails up x3 pt still under observe .
--- NOTE | 2022-04-15 09:07 | NUR ---
Patient will be admitted to care of DOCTOR SHEILA. Admited to . Will go to room. Belongings list completed. Report to . Addendum: 04/15/22 at 0942 by [email or web address] ADMITTED TO TELEMETRY ROOM 121 B RN REPORT TO AMINAH
[2022-04-15] MEDS: PANTOPRAZOLE 40 MG TABEC PO SCH (09:24)
[2022-04-15] MEDS: lisinopriL 10 MG TAB PO SCH (09:24)
[2022-04-15 11:16] LABS: BASOPHILS # (AUTO) 0.1 K/uL (0.00-0.22); BASOPHILS % (AUTO) 1.3 % (0.0-2.0); EOSINOPHILS % (AUTO) 0.6 % (0.0-4.0); HEMATOCRIT 30.6 % (36-48); HEMOGLOBIN 9.8 g/dL (12.0-16.0); LYMPHOCYTES # (AUTO) 1.3 K/uL (2.5-16.5); LYMPHOCYTES % (AUTO) 23.8 % (20.5-51.1); MEAN CORPUSCULAR HEMOGLOBIN 25 pg (27-31); MEAN CORPUSCULAR HGB CONC 32 g/dL (33-37); MEAN CORPUSCULAR VOLUME 76.4 fL (80-94); MONOCYTES # (AUTO) 0.6 K/uL (0.8-1.0); MONOCYTES % (AUTO) 10.9 % (1.7-9.3); NEUTROPHILS # (AUTO) 3.5 K/uL (1.8-7.7); NEUTROPHILS % (AUTO) 63.4 % (42.2-75.2); PLATELET COUNT (AUTO) 338 K/uL (140-450); RED CELL DISTRIBUTION WIDTH 21.6 % (11.6-13.7); WHITE BLOOD COUNT (AUTO) 5.5 K/uL (4.8-10.8)
[2022-04-15 11:19] LABS: ANION GAP 6.4 (8-16); CARBON DIOXIDE 32.8 mmol/L (21-32); CHLORIDE 105 mmol/L (98-107); CREATININE 0.6 mg/dL (0.6-1.3); GLUCOSE 112 mg/dL (74-106); POTASSIUM 4.2 mmol/L (3.5-5.1); SODIUM SERUM 140 mmol/L (136-145); UREA NITROGEN, BLOOD 11 mg/dL (7-18)
[2022-04-15 12:12] VITALS: BP 135/53
--- NOTE | 2022-04-15 12:15 | NUR ---
nurses note patient stable , no complain at this time , vss , sinus rhythm on monitor , on clear liquid diet Meds given , still under observe .
--- NOTE | 2022-04-15 13:58 | NUR ---
PATIENT HAS BEEN SCREENED AND CATEGORIZED MODERATE NUTRITION RISK. PATIENT WILL BE SEEN WITHIN 3-5 DAYS OF ADMISSION. 04/18/2212/19/[address] Addendum: 04/15/22 at [address] *WRONG PATIENT PATIENT HAS BEEN SCREENED AND CATEGORIZED LOW NUTRITION RISK. PATIENT WILL BE SEEN WITHIN 7 DAYS OF ADMISSION. 04/21/[address]
[2022-04-15 16:00] VITALS: BP 144/64
--- NOTE | 2022-04-15 16:22 | NUR ---
nurses note patient a/ox4 , vss , sinus rhythm on monitor , on room air , continent x2 , ambulatory , no complain at this time , skin intact , her hgb improve , on clear liquid diet , no vomiting or nausea ,for occult blood stool sample still under [id number] .
--- NOTE | 2022-04-15 19:19 | NUR ---
nurses note report given to night nurse , all her question answer
--- NOTE | 2022-04-15 19:21 | NUR ---
RECEIVED REPORT FROM DAY NURSE. PATIENT LYING ON THE BED, IS ALERT AND ORIENTED, NO
--- NOTE | 2022-04-15 19:22 | NUR ---
PATIENT DENIES PAIN, NO SOB NOTED, ON ROOM AIR. FAMILY AT BEDSIDE. PATIENT HAS G20 ON LEFT WRIST IV ACCESS SITE, FLUSH WITHOUT RESISTANCE. CALL LIGHT WITHIN REACH.
[2022-04-15 20:00] VITALS: BP 114/76
--- NOTE | 2022-04-15 20:25 | NUR ---
DUE MEDICATION GIVEN ORDERED. PATIENT JUST USED THE RESTROOM. CALL LIGHT WITHIN REACH. BED LOCKED AND LOW POSITION.
[2022-04-15] MEDS ORDERED: ATORVASTATIN 20 MG TAB PO SCH (21:00)
[2022-04-16] VITALS: BP 106/49
--- NOTE | 2022-04-16 00:08 | NUR ---
VITALS T 98.4, P 71, BP 106/49, RESP 18 AND O2 SATS 97% ON ROOM AIR. PATIENT IS ASLEEP, NO SIGNS OF PAIN NOTED, NO SIGNS OF DISTRESS NOTED. CALL LIGHT IS WITHIN REACH. SAFETY PRECAUTIONS IN PLACE. WILL CONTINUE TO MONITOR THE PATIENT.
[2022-04-16 04:00] VITALS: BP 95/55
--- NOTE | 2022-04-16 04:10 | NUR ---
VITALS TAKEN T 97.9, P 75, BP 95/55, RESP 18 AND O2 SATS 96% ON ROOM AIR, PATIENT DENIES PAIN, NO DISTRESS NOTED. PATIENT USED THE RESTROOM. PATIENT ASSISTED BACK TO BED. CALL LIGHT WITHIN REACH. WILL CONTINUE TO MONITOR THE PATIENT.
[2022-04-16] MEDS: LEVOTHYROXINE 0.112 MG TAB PO SCH (05:40)
[2022-04-16 05:57] LABS: BASOPHILS # (AUTO) 0.1 K/uL (0.00-0.22); BASOPHILS % (AUTO) 1.2 % (0.0-2.0); EOSINOPHILS # (AUTO) 0.1 K/uL (0-0.4); EOSINOPHILS % (AUTO) 2.1 % (0.0-4.0); HEMOGLOBIN 9.2 g/dL (12.0-16.0); LYMPHOCYTES # (AUTO) 1.5 K/uL (2.5-16.5); MEAN CORPUSCULAR HEMOGLOBIN 24 pg (27-31); MEAN CORPUSCULAR HGB CONC 32 g/dL (33-37); MONOCYTES # (AUTO) 0.6 K/uL (0.8-1.0); NEUTROPHILS # (AUTO) 2.9 K/uL (1.8-7.7); NEUTROPHILS % (AUTO) 56.7 % (42.2-75.2); PLATELET COUNT (AUTO) 290 K/uL (140-450); RED BLOOD CELL COUNT(AUTO) 3.82 MIL/uL (4.20-5.40); WHITE BLOOD COUNT (AUTO) 5.1 K/uL (4.8-10.8)
--- NOTE | 2022-04-16 06:40 | NUR ---
ALL NEEDS ATTENDED THROUGHOUT THE SHIFT, PATIENT IN NO SIGNS OF DISTRESS, CALL LIGHT WITHIN REACH. WILL ENDORSE PATIENT TO DAY NURSE FOR CONTINUITY OF CARE.
[2022-04-16 07:21] LABS: ANION GAP 10.7 (8-16); CARBON DIOXIDE 30.9 mmol/L (21-32); CHLORIDE 106 mmol/L (98-107); GLUCOSE 95 mg/dL (74-106); POTASSIUM 3.6 mmol/L (3.5-5.1); SODIUM SERUM 144 mmol/L (136-145)
[2022-04-16 07:22] LABS: CREATININE 0.6 mg/dL (0.6-1.3); UREA NITROGEN, BLOOD 8 mg/dL (7-18)
--- NOTE | 2022-04-16 07:26 | NUR ---
ENDORSED PATIENT TO DAY NURSE FOR CONTINUITY OF CARE. PATIENT IS STABLE.
[2022-04-16 08:00] VITALS: BP 109/60
[2022-04-16 08:07] LABS: T4 (THYROXINE) 8.4 ug/dL (4.5-12.0)
--- NOTE | 2022-04-16 08:50 | NUR ---
DC PLANNING LATE ENTRY, PT SEEN 04/15 AT 1140AM ANABEL MET WITH PT AT BEDSIDE TO COMPLETE ASSESSMENT. PT PRIMARILY CITIZEN OF [place] SPEAKING THEREFORE ONION TIER UTILIZED, VALERIAGRP- [id number]. PT REPORTS RESIDING IN A SINGLE STORY HOME WITH HER SON AND DIL AT THE ADDRESS LISTED ON FILE. PT IDENTIFIED NICK ROMEO, DAUGHTER, AND KING KOEHLER, DAUGHTER, EMERGENCY CONTACTS. PT DENIED HAVING AD IN PLACE AND DECLINED AD OFFERED BY ANABEL. PT REPORTS MEETING WITH PCP REGULARLY, LAST VISIT 04/14/22. PT REPORTS MEDICATION COMPLIANCE AND DENIES BARRIERS IN ACCESS TO NEEDED MEDICATIONS. PT REPORTS RECEIVING MEDICATION FROM [facility] IN [place], WHEN NEEDED. PT REPORTS BEING INDEPENDENT IN ALL ACTIVITIES AND DENIES USE OF DME. PT COMPLETES ALL ADL'S INDEPENDENTLY. PT DENIES MH/RYAN, DIABETES, DIALYSIS, SNF PLACEMENT, HH AND HOSPICE CARE HX. PT REPORTS DC PLAN IS TO RETURN HOME WITH FAMILY PROVIDING TRANSPORTATION, WHEN MEDICALLY STABLE. ANABEL INQUIRED ON RESOURCES NEEDED, PT DECLINED. Addendum: 04/16/22 at 0852 by Екатерина MANLEY Amended: Links added.
[2022-04-16] MEDS: PANTOPRAZOLE 40 MG TABEC PO SCH (09:30)
[2022-04-16] MEDS: lisinopriL 10 MG TAB PO SCH (09:30)
[2022-04-16] MEDS ORDERED: PSYL0.4C2 PO (10:05)
[2022-04-16] MEDS ORDERED: FERR325E14 PO (10:08)
[2022-04-16 13:33] VITALS: BP 106/71
[2022-04-16 19:02] VITALS: BP 106/71
== END 2022-04-16 19:45 | disposition home or self-care (01) | DRG 663 ==
LOC: MED 18:54 → MTU 21:15
PROVIDERS: ADMIT Family Medicine; ATTEND Family Medicine
PROC: 30233N1 Transfusion of Nonautologous Red Blood Cells into Peripheral Vein, Percutaneous Approach (ICD-10-PCS; principal; 2022-04-14)
DX: D50.0 Iron deficiency anemia secondary to blood loss (chronic) (principal); E44.1 Mild protein-calorie malnutrition; E83.51 Hypocalcemia; E66.9 Obesity, unspecified; Z20.822 Contact with and (suspected) exposure to COVID-19; K21.9 Gastro-esophageal reflux disease without esophagitis; J45.909 Unspecified asthma, uncomplicated; E78.5 Hyperlipidemia, unspecified; E89.0 Postprocedural hypothyroidism; Z96.651 Presence of right artificial knee joint; Z68.33 Body mass index [BMI] 33.0-33.9, adult; Z85.850 Personal history of malignant neoplasm of thyroid
CPT/HCPCS: 36415; 36430; 71045; 80048; 80053; 82150; 82272; 83036; 83690; 83735; 83880; 84100; 84436; 84439; 84443; 84479; 84484; 85025; 85610; 85730; 86886; 86900; 86901; 86920; 96360; 99285; P9016; Q0092